=== PATIENT | female | born 1980 | race Caucasian/White ===

== ENCOUNTER 2017-12-05 23:01 | Emergency (ER) | payer BC ==
[2017-12-05] MEDS ORDERED: BABY ASPIRIN 81 MG CHEW PO ONE (23:46)
--- NOTE | 2017-12-05 23:46 | ERPHSYRPT ---
- History of Present Illness Time Seen by Provider: 12/05/17 23:29 Historian: patient Exam Limitations: no limitations Patient Subjective Stated Complaint: Pt arrives to ER with c/o nausea that began 1600, progressed to SOB and while driving home developed left sided chest pain that radiates into left arm and across to right side of chest. States has been retaining fluid for past month and was placed on Lasix for past month. Swelling is mainly in fingers and legs. pt describes as "I feel like I'm drowing " and is unable to tolerate laying flat. Pt does not appear to be in any distress at this time while laughing and joking with staff. pt denies actual diagnosis of CHF. Also c/o lightheadedness and coughing up blood. Triage Nursing Assessment: see above Physician History: Patient is a 37-year-old female with her daughter with multiple complaints. 2 days ago she woke up with left arm pain. She thought it was hurting because she slept wrong. She was little bit nauseated yesterday. Today she was not feeling well at work. This afternoon she was coughing. She coughed up green blood tinged sputum. She developed left-sided chest pain that was radiating to her left arm. It hurts for her to breathe. She has shortness of breath. She is unable to lie flat on her back causes she states it feels like she is "drowning". She has to sit up to breathe well. For the past month she states she has been retaining fluid and was placed on Lasix. Her past medical history is significant for depression, seizure disorder for which she had stopped taking Keppra one month ago, and lower extremity edema. Timing/Duration: today, gradual onset, worse Activities at Onset: none Quality: aching, fullness Location: substernal Chest Pain Radiation: arm Severity of Pain-Max: moderate Severity of Pain-Current: moderate Modifying Factors: Improves With: breathing, lying down (worse), sitting up ( improved), change in position Associated Symptoms: cough, hurts to breathe Prior Chest Pain/Cardiac Workup: no prior chest pain Nitro Today/Relief: no nitro taken today Aspirin Treatment Today: 81 mg x 4, provided by ED Allergies/Adverse Reactions: Penicillins Allergy (Verified 12/05/17 23:19) morphine Adverse Reaction (Severe, Verified 12/05/17 23:19) Vomiting naproxen Adverse Reaction (Verified 12/05/17 23:19) Home Medications: Levetiracetam [Keppra] 1,000 mg PO BID 03/24/16 [History] Bupropion HCl 150 mg Sr [Wellbutrin SR 150 MG] 150 mg PO DAILY 12/05/17 [ History] Furosemide [Furosemide] 20 mg PO DAILY 12/05/17 [History] Potassium Chloride 10 Meq Tab* [Klor Con 10 MEQ] 10 meq PO DAILY 12/05/17 [ History] Hx Tetanus, Diphtheria Vaccination/Date Given: No Hx Influenza Vaccination/Date Given: No Hx Pneumococcal Vaccination/Date Given: No Immunizations Up to Date: Yes - Review of Systems Constitutional: No Fever, No Chills Eyes: No Symptoms Ears, Nose, & Throat: No Symptoms Respiratory: Cough, Dyspnea Cardiac: Chest Pain, Edema Abdominal/Gastrointestinal: No Abdominal Pain, No Nausea, No Vomiting, No Diarrhea Genitourinary Symptoms: No Dysuria Musculoskeletal: No Back Pain, No Neck Pain Skin: No Rash Neurological: No Dizziness, No Focal Weakness, No Sensory Changes Psychological: No Symptoms Endocrine: No Symptoms Hematologic/Lymphatic: No Symptoms Immunological/Allergic: No Symptoms All Other Systems: Reviewed and Negative - Past Medical History Pertinent Past Medical History: Yes Neurological History: Seizures ENT History: No Pertinent History Cardiac History: No Pertinent History Respiratory History: Asthma, Other Endocrine Medical History: No Pertinent History Musculoskeletal History: No Pertinent History GI Medical History: No Pertinent History History: No Pertinent History Psycho-Social History: Depression Female Reproductive Disorders: Cervical Cancer Other Medical History: cervical ca - Past Surgical History Past Surgical History: Yes Neuro Surgical History: No Pertinent History Cardiac: No Pertinent History Respiratory: No Pertinent History Gastrointestinal: No Pertinent History Genitourinary: No Pertinent History Musculoskeletal: No Pertinent History Female Surgical History: Section, Hysterectomy - Social History Smoking Status: Current every day smoker How long have you smoked: 9 Exposure to second hand smoke: Yes Drug Use: none Patient Lives Alone: No - Female History Hx Now: No - Nursing Vital Signs Nursing Vital Signs: Initial Vital Signs Temperature 97.6 F 12/05/17 23:03 Pulse Rate 95 H 12/05/17 23:03 Respiratory Rate 22 12/05/17 23:03 Blood Pressure 127/82 12/05/17 23:03 O2 Sat by Pulse Oximetry 100 12/05/17 23:03 Pain Scale Pain Intensity 8 - Physical Exam General Appearance: anxiety Eye Exam: PERRL/EOMI, eyes nml inspection Ears, Nose, Throat Exam: normal ENT inspection, moist mucous membranes Neck Exam: normal inspection, non-tender, supple, full range of motion Respiratory Exam: chest tenderness (left side; reproduces pain), No rhonchi Cardiovascular Exam: regular rate/rhythm, normal heart sounds Gastrointestinal/Abdomen Exam: soft, No tenderness, No mass Pelvic Exam: not done Rectal Exam: not done Back Exam: normal inspection, No CVA tenderness, No vertebral tenderness Extremity Exam: pedal edema (very mild) Neurologic Exam: alert, oriented x 3, cooperative, normal mood/affect, sensation nml, No motor deficits Skin Exam: normal color, warm, dry SpO2 Interpretation: normal SpO2: 100 Oxygen Delivery: Room Air - Course EKG Interpreted by Me: RATE, Sinus Rhythm, NORMAL AXIS, NORMAL INTERVALS, NORMAL QRS, NORMAL ST-T, Other (no change compared to EKG 05/07/15.) - Radiology Exams Chest X-ray Interpretation: Interpreted by me, Negative (no change compared to CXR .) Ordered Tests: Active Orders 24 hr Category Date Time Status [employer] STAT Care 12/05/17 23:47 Active EKG-ER Only STAT Care 12/05/17 23:46 Active IV Insertion STAT Care 12/05/17 23:46 Active Oxygen-ED Only NASAL CANNULA 2 lpm Care 12/05/17 23:46 Active Pulse Oximetry (ED) STAT Care 12/05/17 23:46 Active CHEST 2 VIEWS (PA AND LAT) Stat Exams 12/05/17 23:46 Taken CBC W DIFF Stat Lab 12/05/17 23:30 Completed CMP Stat Lab 12/05/17 23:30 Completed NT PRO BNP Stat Lab 12/05/17 23:30 Completed TROPONIN Q3H Lab 12/05/17 23:30 Completed TROPONIN Q3H Lab 12/06/17 02:46 Ordered TROPONIN Q3H Lab 12/06/17 05:46 Ordered TROPONIN Q3H Lab 12/06/17 08:46 Ordered TROPONIN Q3H Lab 12/06/17 11:46 Ordered Medication Summary Generic Name Dose Route Start Last Admin Trade Name Freq PRN Reason Stop Dose Admin Ceftriaxone Sodium 1,000 mg 12/06/17 01:33 Rocephin 1000 Mg Inj IM 12/06/17 01:34 STAT ONE Discontinued Medications Generic Name Dose Route Start Last Admin Trade Name Garrison PRN Reason Stop Dose Admin Aspirin 324 mg 12/05/17 23:46 12/06/17 00:00 Baby Aspirin 81 Mg Chew PO 12/05/17 23:47 324 mg STAT ONE Administration Lab/Rad Data: Laboratory Result Diagrams 12/05/17 23:30 12/05/17 23:30 Laboratory Results 12/05/17 12/05/17 12/05/17 Range/Units 23:30 23:30 23:30 WBC 12.7 H (4.0-10.5) K/mm3 RBC 4.65 (4.1-5.4) M/mm3 Hgb 15.2 (12.0-16.0) gm/dl Hct 44.1 (35-47) % MCV 94.8 (78-100) fl MCH 32.7 H (26-32) pg MCHC 34.5 (32-36) g/dl RDW 13.2 (11.5-14.0) % Plt Count 347 (150-450) K/mm3 MPV 10.4 H (6-9.5) fl Gran % 60.8 (36.0-66.0) % Eos # (Auto) 0.21 (0-0.5) Absolute Lymphs (auto) 4.04 (1.0-4.6) Absolute Monos (auto) 0.70 (0.0-1.3) Lymphocytes % 31.8 (24.0-44.0) % Monocytes % 5.5 (0.0-12.0) % Eosinophils % 1.7 (0.00-5.0) % Basophils % 0.2 (0.0-0.4) % Absolute Granulocytes 7.72 H (1.4-6.9) Basophils # 0.02 (0-0.4) D-Dimer (215-500) ng/mL Sodium 137 (137-145) mmol/L Potassium 4.4 (3.5-5.1) mmol/L Chloride 104 (98-107) mmol/L Carbon Dioxide 25 (22-30) mmol/L Anion Gap 12.8 (5-15) MEQ/L BUN 19 H (7-17) mg/dL Creatinine 0.83 (0.52-1.04) mg/dL Estimated GFR > 60.0 ML/MIN Glucose 88 (74-106) mg/dL Calcium 9.5 (8.4-10.2) mg/dL Total Bilirubin 0.20 (0.2-1.3) mg/dL AST 13 L (14-36) U/L ALT 17 (0-35) U/L Alkaline Phosphatase 71 (38-126) U/L Troponin I < 0.012 (0.000-0.034) ng/mL NT-Pro-B Natriuret Pep 48.2 (0-450) pg/mL Serum Total Protein 7.1 (6.3-8.2) g/dL Albumin 4.1 (3.5-5.0) g/dL 12/05/17 Range/Units 00:00 WBC (4.0-10.5) K/mm3 RBC (4.1-5.4) M/mm3 Hgb (12.0-16.0) gm/dl Hct (35-47) % MCV (78-100) fl MCH (26-32) pg MCHC (32-36) g/dl RDW (11.5-14.0) % Plt Count (150-450) K/mm3 MPV (6-9.5) fl Gran % (36.0-66.0) % Eos # (Auto) (0-0.5) Absolute Lymphs (auto) (1.0-4.6) Absolute Monos (auto) (0.0-1.3) Lymphocytes % (24.0-44.0) % Monocytes % (0.0-12.0) % Eosinophils % (0.00-5.0) % Basophils % (0.0-0.4) % Absolute Granulocytes (1.4-6.9) Basophils # (0-0.4) D-Dimer 243 (215-500) ng/mL Sodium (137-145) mmol/L Potassium (3.5-5.1) mmol/L Chloride (98-107) mmol/L Carbon Dioxide (22-30) mmol/L Anion Gap (5-15) MEQ/L BUN (7-17) mg/dL Creatinine (0.52-1.04) mg/dL Estimated GFR ML/MIN Glucose (74-106) mg/dL Calcium (8.4-10.2) mg/dL Total Bilirubin (0.2-1.3) mg/dL AST (14-36) U/L ALT (0-35) U/L Alkaline Phosphatase (38-126) U/L Troponin I (0.000-0.034) ng/mL NT-Pro-B Natriuret Pep (0-450) pg/mL Serum Total Protein (6.3-8.2) g/dL Albumin (3.5-5.0) g/dL - Progress Progress: improved Air Movement: good Progress Note: 12/06/17 01:10 Pt is breathing well while supine, with O2 sat of 98% on room air. - Departure Time of Disposition: 01:35 Departure Disposition: Home Clinical Impression: Cough Condition: Stable Critical Care Time: No Referrals: MARGARITA GORDON [Primary Care Provider] - Additional Instructions: You were treated tonight in the ER or cough and some pleuritic chest pain. You were given aspirin 324 mg orally and Rocephin 1 g by IV. Take azithromycin 500 mg in the morning followed by 250 mg daily over the next 4 more days. Follow- up with your primary care doctor as needed. Prescriptions: Azithromycin 250 mg [Zithromax 250 MG TABLET] 250 mg PO ZPACK #6 tablet
[2017-12-06 00:02] LABS: BASOPHIL % 0.2 % (0.0-0.4); Basophil (Absolute #) 0.02 (0-0.4); Eosinophil % 1.7 % (0.00-5.0); Eosinophil (Absolute #) 0.21 (0-0.5); Granulocyte Absolute (ANC) 7.72 (1.4-6.9); Granulocytes % 60.8 % (36.0-66.0); Hematocrit 44.1 % (35-47); Hemoglobin 15.2 gm/dl (12.0-16.0); Lymphocyte (Absolute #) 4.04 (1.0-4.6); Lymphocytes % 31.8 % (24.0-44.0); Mean Cell Volume 94.8 fl (78-100); Mean Corpuscular Hemoglobin 32.7 pg (26-32); Mean Corpuscular Hgb Concent. 34.5 g/dl (32-36); Mean Platelet Volume 10.4 fl (6-9.5); Monocytes % 5.5 % (0.0-12.0); Platelet Count 347 K/mm3 (150-450); Red Blood Count 4.65 M/mm3 (4.1-5.4); Red Cell Distribution Width 13.2 % (11.5-14.0); White Blood Count 12.7 K/mm3 (4.0-10.5)
[2017-12-06 00:18] LABS: ALBUMIN 4.1 g/dL (3.5-5.0); ALKALINE PHOSPHATASE 71 U/L (38-126); ANION GAP 12.8 MEQ/L (5-15); BLOOD UREA NITROGEN 19 mg/dL (7-17); CHLORIDE 104 mmol/L (98-107); Calcium 9.5 mg/dL (8.4-10.2); Carbon Dioxide 25 mmol/L (22-30); Creatinine 1 0.83 mg/dL (0.52-1.04); Glucose 88 mg/dL (74-106); Potassium 4.4 mmol/L (3.5-5.1); SGOT/AST 13 U/L (14-36); SGPT/ALT 17 U/L (0-35); SODIUM 137 mmol/L (137-145); Total Protein 7.1 g/dL (6.3-8.2)
[2017-12-06 00:26] LABS: NT PRO BNP 48.2 pg/mL (0-450)
[2017-12-06] MEDS ORDERED: Rocephin 1000 MG INJ IM ONE (01:33)
[2017-12-06] MEDS ORDERED: ROCEPHIN 1 Gm-D5w 50 ml Bag** 1 G/50 ML IVPB IV STA (01:38)
[2017-12-06] MEDS ORDERED: ROCEPHIN 1 Gm-D5w 50 ml Bag** 1 G/50 ML IVPB IV ONE (01:40)
[2017-12-06 01:47] VITALS: BP 115/82; PULSE 88; O2SAT 99
--- NOTE | 2017-12-06 08:44 | XRAY ---
Indication: Chest pain short of breath. Comparison: August 29, 2017. AP/lateral chest less inflated and remains clear. Heart and mediastinal structures within normal limits. Bony thorax intact. Impression: Stable nonacute chest. Comment: Preliminary interpretation was made by [facility]. No discrepancy.
== END 2017-12-06 02:10 | disposition home or self-care (01) ==
LOC: ED 23:01
DX: R05 Cough (principal); R07.89 Other chest pain; R06.02 Shortness of breath; Z79.899 Other long term (current) drug therapy
CPT/HCPCS: 36000; 36415; 71046; 80053; 83880; 84484; 85025; 85379; 93005; 93041; 99284; J0696; A9270-GY

== ENCOUNTER 2018-03-24 15:04 | Observation (INO) | payer BC, OTHER ==
[2018-03-24] MEDS ORDERED: Zofran 4 MG/2 ML VIAL IV PRN (15:25)
[2018-03-24] MEDS ORDERED: Sodium Chloride 0.9% 500 ML 500 ML IV SCH (15:30)
[2018-03-24 16:31] LABS: Hematocrit 42.1 % (35-47); Hemoglobin 14.7 gm/dl (12.0-16.0); Mean Cell Volume 93.8 fl (78-100); Mean Corpuscular Hemoglobin 32.7 pg (26-32); Mean Corpuscular Hgb Concent. 34.9 g/dl (32-36); Mean Platelet Volume 10.8 fl (6-9.5); Red Blood Count 4.49 M/mm3 (4.1-5.4); Red Cell Distribution Width 12.7 % (11.5-14.0); White Blood Count 9.4 K/mm3 (4.0-10.5)
[2018-03-24] MEDS ORDERED: PROVENTIL 2.5 MG/3 ML NEB IH ONE (16:47)
[2018-03-24] MEDS ORDERED: PROVENTIL 2.5 MG/3 ML NEB IH PRN (16:49)
[2018-03-24 16:52] LABS: ALBUMIN 4.2 g/dL (3.5-5.0); ALKALINE PHOSPHATASE 65 U/L (38-126); ANION GAP 13.9 MEQ/L (5-15); BLOOD UREA NITROGEN 17 mg/dL (7-17); CHLORIDE 108 mmol/L (98-107); Calcium 8.7 mg/dL (8.4-10.2); Carbon Dioxide 22 mmol/L (22-30); Creatinine 1 0.66 mg/dL (0.52-1.04); Glucose 91 mg/dL (74-106); Potassium 3.8 mmol/L (3.5-5.1); SGOT/AST 14 U/L (14-36); SGPT/ALT 19 U/L (0-35); SODIUM 140 mmol/L (137-145); Total Protein 7.3 g/dL (6.3-8.2)
[2018-03-24 17:05] LABS: Platelet Count 267 K/mm3 (150-450)
[2018-03-24] MEDS: ROCEPHIN 1 Gm-D5w 50 ml Bag** 1 G/50 ML IVPB IV SCH (17:14)
[2018-03-24] MEDS: Sodium Chloride 0.9% 1000 ML 1,000 ML IV SCH (17:36)
[2018-03-24] MEDS: TYLENOL 325 MG PO PRN (17:55)
[2018-03-24] MEDS: VIBRAMYCIN 100 MG*** 100 MG in Dextrose 5%/Water IV Soln. 100ML PLUS BAG 100 ML IV SCH (17:56)
[2018-03-24 18:34] LABS: Appearance CLEAR (CLEAR); Bilirubin NEGATIVE (NEGATIVE); Blood NEGATIVE Ery/ul (0-5); Glucose NEGATIVE (NEGATIVE); Ketones NEGATIVE (NEGATIVE); Leukocyte Esterase NEGATIVE (NEGATIVE); Nitrite NEGATIVE (NEGATIVE); Protein,Urine Dip NEGATIVE (Negative); Urobilinogen NORMAL mg/dL (0-1)
[2018-03-24] MEDS: PROVENTIL 2.5 MG/3 ML NEB IH SCH (19:23)
--- NOTE | 2018-03-24 22:10 | XRAY ---
Indication: Pneumonia, fever, and bodyaches. Comparison: December 05, 2017. PA/lateral chest again demonstrates normal heart, lungs, and bony thorax.
[2018-03-25] MEDS: Sodium Chloride 0.9% 1000 ML 1,000 ML IV SCH ×3 (03:25→19:42)
[2018-03-25] MEDS: TYLENOL 325 MG PO PRN ×3 (03:37→21:01)
[2018-03-25] MEDS: VIBRAMYCIN 100 MG*** 100 MG in Dextrose 5%/Water IV Soln. 100ML PLUS BAG 100 ML IV SCH ×2 (06:17→18:07)
[2018-03-25] MEDS: PROVENTIL 2.5 MG/3 ML NEB IH SCH ×4 (06:52→21:13)
[2018-03-25] MEDS: ROCEPHIN 1 Gm-D5w 50 ml Bag** 1 G/50 ML IVPB IV SCH (09:41)
--- NOTE | 2018-03-25 13:04 | PCM.NOTE ---
Date and Time: 03/25/18 1300 Subjective Assessment: She is having nausea, no vomiting. States "I just picked at my sandwich" but there is approx 1/4 of sandwich remaining on her plate. She has cough. Still has some body aches. C/o L leg pain. - Review of Systems Constitutional: No Fever Respiratory: Cough Abdominal/Gastrointestinal: Nausea Musculoskeletal: Other (leg pain, body aches) Objective Exam General Appearance: no apparent distress, alert Neurologic Exam: oriented x 3, cooperative Skin Exam: normal color, warm, dry, No rash Respiratory Exam: normal breath sounds, lungs clear, No crackles/rales, No rhonchi, No wheezing Cardiovascular Exam: regular rate/rhythm, normal heart sounds, No murmur Gastrointestinal/Abdomen Exam: soft, normal bowel sounds, No tenderness, No distention, No mass, No guarding, No rebound Extremity Exam: normal inspection, No pedal edema, No swelling OBJECTIVE DATA Vital Signs: Vital Signs - 24 hr Temp Pulse Resp BP Pulse Ox 03/25/18 12:00 16 03/25/18 11:09 98.2 F 94 H 16 113/66 98 03/25/18 11:01 78 18 94 L 03/25/18 08:00 16 03/25/18 07:02 98.2 F 76 16 102/61 98 03/25/18 06:57 87 18 98 03/25/18 03:59 98.1 F 95 H 20 105/66 96 03/25/18 00:00 98.0 F 97 H 19 93/51 98 03/24/18 20:00 98.0 F 105 H 18 113/56 97 03/24/18 19:26 94 H 18 94 L 03/24/18 16:56 96 H 18 97 03/24/18 16:22 97.9 F 100 H 20 122/69 98 03/24/18 15:38 97.9 F 100 H 98 H 122/69 98 03/24/18 15:37 97.9 F 100 H 98 H 122/69 98 Pain Assessment - Last Documented Pain Intensity 6 Pain Scale Used 0-10 Pain Scale Intake and Output: Intake & Output 03/23/18 03/24/18 03/25/18 03/26/18 11:59 11:59 11:59 11:59 Intake Total 2359 Output Total 100 Balance 2259 Weight 72.7 kg Lab Results: Lab Results-Last 24 Hours 03/24/18 03/24/18 03/24/18 Range/Units 15:43 16:29 16:29 WBC 9.4 (4.0-10.5) K/mm3 RBC 4.49 (4.1-5.4) M/mm3 Hgb 14.7 (12.0-16.0) gm/dl Hct 42.1 (35-47) % MCV 93.8 (78-100) fl MCH 32.7 H (26-32) pg MCHC 34.9 (32-36) g/dl RDW 12.7 (11.5-14.0) % Plt Count 267 (150-450) K/mm3 MPV 10.8 H (6-9.5) fl D-Dimer (215-500) ng/mL Sodium (137-145) mmol/L Potassium (3.5-5.1) mmol/L Chloride (98-107) mmol/L Carbon Dioxide (22-30) mmol/L Anion Gap (5-15) MEQ/L BUN (7-17) mg/dL Creatinine (0.52-1.04) mg/dL Estimated GFR ML/MIN Glucose (74-106) mg/dL Lactic Acid 0.8 (0.4-2.0) Calcium (8.4-10.2) mg/dL Total Bilirubin (0.2-1.3) mg/dL AST (14-36) U/L ALT (0-35) U/L Alkaline Phosphatase (38-126) U/L Troponin I < 0.012 (0.000-0.034) ng/mL Serum Total Protein (6.3-8.2) g/dL Albumin (3.5-5.0) g/dL Ur Collection Type Urine Color (YELLOW) Urine Appearance (CLEAR) Urine pH (5-6) Ur Specific [place] (1.005-1.025) Urine Protein (Negative) Urine Ketones (NEGATIVE) Urine Blood (0-5) Michael/ul Urine Nitrite (NEGATIVE) Urine Bilirubin (NEGATIVE) Urine Urobilinogen (0-1) mg/dL Ur Leukocyte Esterase (NEGATIVE) Urine Glucose (NEGATIVE) mg/dL 03/24/18 03/24/18 03/24/18 Range/Units 16:29 16:29 18:31 WBC (4.0-10.5) K/mm3 RBC (4.1-5.4) M/mm3 Hgb (12.0-16.0) gm/dl Hct (35-47) % MCV (78-100) fl MCH (26-32) pg MCHC (32-36) g/dl RDW (11.5-14.0) % Plt Count (150-450) K/mm3 MPV (6-9.5) fl D-Dimer 255 (215-500) ng/mL Sodium 140 (137-145) mmol/L Potassium 3.8 (3.5-5.1) mmol/L Chloride 108 H (98-107) mmol/L Carbon Dioxide 22 (22-30) mmol/L Anion Gap 13.9 (5-15) MEQ/L BUN 17 (7-17) mg/dL Creatinine 0.66 (0.52-1.04) mg/dL Estimated GFR > 60.0 ML/MIN Glucose 91 (74-106) mg/dL Lactic Acid (0.4-2.0) Calcium 8.7 (8.4-10.2) mg/dL Total Bilirubin 0.30 (0.2-1.3) mg/dL AST 14 (14-36) U/L ALT 19 (0-35) U/L Alkaline Phosphatase 65 (38-126) U/L Troponin I (0.000-0.034) ng/mL Serum Total Protein 7.3 (6.3-8.2) g/dL Albumin 4.2 (3.5-5.0) g/dL Ur Collection Type VOID Urine Color YELLOW (YELLOW) Urine Appearance CLEAR (CLEAR) Urine pH 6.0 (5-6) Ur Specific [place] 1.020 (1.005-1.025) Urine Protein NEGATIVE (Negative) Urine Ketones NEGATIVE (NEGATIVE) Urine Blood NEGATIVE (0-5) Michael/ul Urine Nitrite NEGATIVE (NEGATIVE) Urine Bilirubin NEGATIVE (NEGATIVE) Urine Urobilinogen NORMAL (0-1) mg/dL Ur Leukocyte Esterase NEGATIVE (NEGATIVE) Urine Glucose NEGATIVE (NEGATIVE) mg/dL Radiology Exams: Radiology Procedures Category Date Time Status CHEST 2 VIEWS (PA AND LAT) Routine Exams 03/24/18 16:15 Completed Assessment/Plan (1) Pneumonia Current Visit: Yes Status: Acute Qualifiers: Pneumonia type: due to unspecified organism Laterality: unspecified laterality Lung location: unspecified part of lung Qualified Code(s): J18.9 - Pneumonia, unspecified organism Assessment & Plan: lung sounds are clear this morning. On IV rocephin day #2. Code(s): J18.9 - PNEUMONIA, UNSPECIFIED ORGANISM (2) Fever Current Visit: Yes Status: Acute Qualifiers: Fever type: unspecified Qualified Code(s): R50.9 - Fever, unspecified Assessment & Plan: would like to see her 24 h without fever before d/c Code(s): R50.9 - FEVER, UNSPECIFIED (3) Body aches Current Visit: Yes Status: Acute Code(s): R52 - PAIN, UNSPECIFIED (4) Tick bite Current Visit: Yes Status: Acute Qualifiers: Encounter type: initial encounter Qualified Code(s): W57.XXXA - Bitten or stung by nonvenomous insect and other nonvenomous arthropods, initial encounter Assessment & Plan: On IV doxycycline day #2. When she is discharged, likely tomorrow, will be on po liquid doxycycline and a liquid cephalosporin. Code(s): W57.XXXA - BIT/STUNG BY NONVENOM INSECT & OTH NONVENOM ARTHROPODS, INIT
[2018-03-26] MEDS: Sodium Chloride 0.9% 1000 ML 1,000 ML IV SCH (04:50)
[2018-03-26] MEDS: VIBRAMYCIN 100 MG*** 100 MG in Dextrose 5%/Water IV Soln. 100ML PLUS BAG 100 ML IV SCH (05:28)
[2018-03-26 07:37] VITALS: BP 102/63
[2018-03-26] MEDS: PROVENTIL 2.5 MG/3 ML NEB IH SCH (08:33)
[2018-03-26 08:43] VITALS: PULSE 88; O2SAT 97
[2018-03-26] MEDS: TYLENOL 325 MG PO PRN (08:49)
[2018-03-26] MEDS: ROCEPHIN 1 Gm-D5w 50 ml Bag** 1 G/50 ML IVPB IV SCH (08:49)
--- NOTE | 2018-03-26 10:52 | PCM.DS ---
Discharge Summary Date of Admission: 03/24/18 15:22 Admitting Physician: JUSTINE JARRELL Primary Care Provider: MARGARITA GORDON Allergies Allergies Penicillins Allergy (Verified 12/05/17 23:19) morphine Adverse Reaction (Severe, Verified 12/05/17 23:19) Vomiting naproxen Adverse Reaction (Verified 12/05/17 23:19) Hospital Summary - Hospital Course Hospital Course: Pt is 37 yo female pt of Heena Stevenson who saw Dr. Riggins in the office and was directly admitted by her. She had a tick bite recently and was feeling achy; she had been started on po doxycycline but could only tolerate 4 doses as she does not take pills well. She had a fever and also complained of cough and not feeling well for some time. Dr. Riggins auscultated rhonchi and treated pt for pneumonia with IV rocephin. Yesterday she was feeling somewhat better but still having nausea. Today she has been afebrile for over 24 hours. She is tolerating po, no more nausea, and is overall feeling much better. She will be discharged to home with nebulizer treatments (albuterol), as weel as liquid po doxycycline and liquid po omnicef. - Vitals & Intake/Output Vital Signs: Vital Signs Temperature 98 F 03/26/18 07:36 Pulse Rate 88 03/26/18 08:34 Respiratory Rate 16 03/26/18 08:34 Blood Pressure 102/63 03/26/18 07:36 O2 Sat by Pulse Oximetry 97 03/26/18 08:34 Intake & Output: Intake & Output 03/23/18 03/24/18 03/25/18 03/26/18 11:59 11:59 11:59 11:59 Intake Total 3769 2749 Output Total 100 500 Balance 2259 2249 Weight 72.7 kg - Lab Result Diagrams: 03/24/18 16:29 03/24/18 16:29 Micro Results-Entire Visit: Microbiology 03/24/18 18:31 Urine Culture - Final Clean Catch Midstream NO GROWTH 03/24/18 16:29 Blood Culture - Preliminary Blood NO GROWTH TO DATE 03/24/18 16:29 Blood Culture - Preliminary Blood NO GROWTH TO DATE - Radiology Exams Ordered Rad Exams-Entire Visit: Radiology Procedures Category Date Time Status CHEST 2 VIEWS (PA AND LAT) Routine Exams 03/24/18 16:15 Completed - Procedures and Test Procedures and Tests throughout Hospitalization: Therapy Orders & Screens 03/24/18 15:37 EKG ROUTINE Comment: Diagnosis: Pneumonia, fever, bodyaches, tick bite 03/24/18 15:40 Respiratory Therapy Consult ROUTINE Comment: Reason For Exam: Diagnosis: Pneumonia, fever, bodyaches, tick bite 03/24/18 16:50 Peak Expiratory Flow Rate ONCE Comment: Reason For Exam: Diagnosis: Pneumonia, fever, bodyaches, tick bite Respiratory Therapy Assessment DAILY Comment: Diagnosis: Pneumonia, fever, bodyaches, tick bite 03/24/18 17:33 RT Screen per Nursing Assess ONCE Comment: Protocol Order Physician Instructions: Greater than 3 points order RT Admission Screen Reason For Exam: Triggered on Admission Diagnosis: Pneumonia, fever, bodyaches, tick bite Diagnosis: Pneumonia, fever, bodyaches, tick bite Pneumonia: Yes Home O2: No Asthma: Yes CHF: No Home CPAP/BIPAP: No Home Nebs/MDI: Yes Total Points: 12 Smoking Cessation Education ONCE Comment: Diagnosis: Pneumonia, fever, bodyaches, tick bite Smoking Status: Current every day smoker How long have you smoked: "20 years" Have you smoked in the past 12 months: Yes Approximately how many cigarettes per day: 20 Do you dip or chew tobacco: No Discharge Exam General Appearance: no apparent distress, alert Neurologic Exam: oriented x 3, cooperative Skin Exam: normal color, warm, dry, No rash Respiratory Exam: normal breath sounds, lungs clear, No crackles/rales, No rhonchi, No wheezing Cardiovascular Exam: regular rate/rhythm, normal heart sounds, No murmur Gastrointestinal/Abdomen Exam: soft, normal bowel sounds, No tenderness, No distention, No mass, No guarding, No rebound Extremity Exam: normal inspection, No pedal edema, No swelling Final Diagnosis/Problem List - Final Discharge Diagnosis/Problem (1) Pneumonia Current Visit: Yes Status: Acute Onset Date: ~03/24/18 Assessment & Plan: Much improved. Home on po liquid omnicef. (2) Fever Current Visit: Yes Status: Acute Onset Date: ~03/24/18 Assessment & Plan: Resolved. (3) Body aches Current Visit: Yes Status: Resolved Onset Date: ~03/24/18 (4) Tick bite Current Visit: Yes Status: Acute Onset Date: ~03/24/18 Assessment & Plan: Home on po doxycyline (liquid) for 14 days total (11 more days). - Discharge Disposition: Home, Self-Care Condition: Good Prescriptions: New Doxycycline Monohydrate [Doxycycline] 4 tsp PO BID #440 ml Cefdinir 125 mg/5 ml [Omnicef 125 MG/5 ML SUSP] 12 ml PO BID #100 ml Albuterol 2.5 mg/3 ml Neb [Proventil 2.5 mg/3 ml Neb] 2.5 mg IH Q4H PRN PRN #30 neb PRN Reason: Shortness Of Breath/Wheezing Instructions: Pneumonia, Adult (DC) Follow up with: MARGARITA GORDON [Primary Care Provider] - Call for Appointment Forms: Discharge Instructions, Patient Portal Information
[2018-03-27 18:27] LABS: LYME TOTAL WB TOTAL 0.19 index (0.00-0.90)
[2018-03-29 11:17] LABS: Rocky MT.Spotted Fever IgM <1:64 (<1:64)
== END 2018-03-26 11:00 | disposition home or self-care (01) ==
LOC: MED SURG 15:22
PROVIDERS: ADMIT Family Medicine; ATTEND Family Medicine
DX: J18.9 Pneumonia, unspecified organism (principal); R50.9 Fever, unspecified; R52 Pain, unspecified; W57.XXXA Bitten or stung by nonvenomous insect and other nonvenomous arthropods, initial encounter; F41.9 Anxiety disorder, unspecified; Z72.0 Tobacco use
CPT/HCPCS: 36415; 71046; 80053; 81002; 83605; 84484; 85027; 85379; 86617; 86618; 86757; 87040; 87086; 87798; 93005; 94150; 94640; 94760; G0378; J7609; J0696; A9270-GY

== ENCOUNTER 2019-10-02 20:47 | Emergency (ER) | payer OTHER ==
--- NOTE | 2019-10-02 21:02 | ERPHSYRPT ---
- History of Present Illness Time Seen by Provider: 10/02/19 20:55 Source: patient Exam Limitations: no limitations Physician History: This is a right-handed 38-year-old female who was working at her job in a long term when she leaned against a chair in the patient's room. The chair was broken and patient fell injuring her left wrist. This occurred approximately 4 days ago. In the last 4 days the patient has been using ice, ibuprofen and Tylenol for the pain and swelling. Patient states it has not improved. Patient was sent here for evaluation. Patient states this is a workman's compensation visit. Occurred: days ago Method of Injury: fell Quality: constant, aching Severity of Pain-Max: mild Severity of Pain-Current: mild Extremities Pain Location: wrist: left Modifying Factors: Improves With: movement (Worsens) Allergies/Adverse Reactions: Penicillins Allergy (Verified 10/02/19 21:07) morphine Adverse Reaction (Severe, Verified 10/02/19 21:07) Vomiting naproxen Adverse Reaction (Verified 10/02/19 21:07) Home Medications: Furosemide [Lasix] 20 mg PO DAILY 10/02/19 [History] Hx Tetanus, Diphtheria Vaccination/Date Given: No Hx Influenza Vaccination/Date Given: No Hx Pneumococcal Vaccination/Date Given: No Travel Risk - International Travel Have you traveled outside of the country in past 3 weeks: No Have you or anyone close to you been diagnosed with or: No Do your reside in a community with a known COVID-19 case?: Yes If Yes where:: [place] - Coronavirus Screening Has patient experienced Coronavirus symptoms: No - Review of Systems Constitutional: No Symptoms Eyes: No Symptoms Ears, Nose, & Throat: No Symptoms Respiratory: No Symptoms Cardiac: No Symptoms Abdominal/Gastrointestinal: No Symptoms Genitourinary Symptoms: No Symptoms Musculoskeletal: Fall, Injury, Joint Pain (Left wrist) Skin: No Symptoms Neurological: No Symptoms Psychological: No Symptoms Endocrine: No Symptoms Hematologic/Lymphatic: No Symptoms Immunological/Allergic: No Symptoms All Other Systems: Reviewed and Negative - Past Medical History Pertinent Past Medical History: Yes Neurological History: Seizures ENT History: No Pertinent History Cardiac History: No Pertinent History Respiratory History: Asthma, Other Endocrine Medical History: No Pertinent History Musculoskeletal History: No Pertinent History GI Medical History: No Pertinent History History: No Pertinent History Psycho-Social History: Depression Female Reproductive Disorders: Cervical Cancer Other Medical History: cervical ca - Past Surgical History Past Surgical History: Yes Neuro Surgical History: No Pertinent History Cardiac: No Pertinent History Respiratory: No Pertinent History Gastrointestinal: No Pertinent History Genitourinary: No Pertinent History Musculoskeletal: No Pertinent History Female Surgical History: Section, Hysterectomy - Social History Smoking Status: Current every day smoker How long have you smoked: "20 years" Exposure to second hand smoke: Yes Drug Use: none Patient Lives Alone: No - Nursing Vital Signs Nursing Vital Signs: Initial Vital Signs Temperature 98.4 F 10/02/19 20:53 Pulse Rate 103 H 10/02/19 20:53 Respiratory Rate 18 10/02/19 20:53 Blood Pressure 118/83 10/02/19 20:53 O2 Sat by Pulse Oximetry 100 10/02/19 20:53 Pain Scale Pain Intensity 9 - Physical Exam General Appearance: no apparent distress, alert, anxiety Eyes, Ears, Nose, Throat Exam: normal ENT inspection, moist mucous membranes Neck Exam: normal inspection, non-tender, supple, full range of motion Cardiovascular/Respiratory Exam: chest non-tender Abdominal Exam: non-tender Back Exam: normal inspection, normal range of motion, No CVA tenderness, No vertebral tenderness Shoulder Exam: normal inspection, non-tender, no evidence of injury, normal ROM Elbow/Forearm Exam: normal inspection, non-tender, no evidence of injury, normal ROM Wrist Exam: normal ROM, ecchymosis, pain, soft tissue tenderness, swelling Hand Exam: normal inspection, non-tender, no evidence of injury, normal ROM Neuro/Tendon Exam: normal sensation, normal motor functions, normal tendon functions, responds to pain, no evidence tendon injury Mental Status Exam: alert, oriented x 3, cooperative Skin Exam: normal color, warm, dry SpO2 Interpretation: normal SpO2: 100 O2 Delivery: Room Air Ordered Tests: Active Orders 24 hr Category Date Time Status Splint STAT Care 10/02/19 21:23 Active WRIST (MIN 3 VIEWS) Stat Exams 10/02/19 21:03 Taken - Progress Progress: unchanged, re-examined Progress Note: 10/02/19 21:40 X-ray of left wrist reveals no evidence of acute fracture or dislocation. Counseled pt/family regarding: diagnosis, need for follow-up, rad results - Departure Departure Disposition: Home Clinical Impression: Left wrist sprain Condition: Stable Critical Care Time: No Referrals: EVAN,MARGARITA F [Primary Care Provider] - [facility] [id number] Instructions: Wrist Sprain Additional Instructions: Use Velcro splint for pain control. Add ibuprofen and Tylenol for pain. Follow -up with orthopedic clinic at [facility] for persistent symptoms of pain
[2019-10-02] MEDS ORDERED: PERCOCET TABLET 5/325MG PO STA (21:43)
[2019-10-02] MEDS ORDERED: PERCOCET TABLET 5/325MG ONE ×2 (21:48→21:49)
[2019-10-02 22:07] VITALS: BP 114/71; PULSE 86; O2SAT 99
--- NOTE | 2019-10-03 08:20 | XRAY ---
Indication: Pain following fall. Comparison: July 09, 2015. 3 views of the left wrist demonstrates mild widening scapholunate interval concerning for underlying ligamentous tear. No other bony, articular, or soft tissue abnormalities.
== END 2019-10-02 22:06 | disposition home or self-care (01) ==
LOC: ED 20:47
DX: S63.502A Unspecified sprain of left wrist, initial encounter (principal); W01.198A Fall on same level from slipping, tripping and stumbling with subsequent striking against other object, initial encounter; Y93.89 Activity, other specified; Y92.129 Unspecified place in nursing home as the place of occurrence of the external cause; Y99.0 Civilian activity done for income or pay; Z85.41 Personal history of malignant neoplasm of cervix uteri; Z72.89 Other problems related to lifestyle
CPT/HCPCS: 73110; 99283; L3908; A9270-GY

== ENCOUNTER 2020-11-08 01:42 | Emergency (ER) | payer BC ==
[2020-11-08] MEDS ORDERED: EMLA Cream 5 GM TP ONE ×2 (01:56→02:04)
[2020-11-08] MEDS ORDERED: SUBLIMAZE 100 MCG/2 ML IV ONE (01:57)
[2020-11-08] MEDS ORDERED: Sodium Chloride 0.9% 1000 ML 1,000 ML IV STA (01:58)
[2020-11-08 02:02] VITALS: O2SAT 100
[2020-11-08] MEDS ORDERED: NORCO 5/325 MG ONE ×2 (02:08→04:28)
[2020-11-08] MEDS ORDERED: NORCO 5/325 MG PO ONE ×2 (02:08→04:26)
[2020-11-08] MEDS ORDERED: ZOFRAN ODT 4 MG PO ONE (02:15)
[2020-11-08] MEDS ORDERED: ZOFRAN ODT 4 MG ONE (02:17)
[2020-11-08] MEDS ORDERED: XYLOCAINE 1%/Epi 1:100000 MDV 20 ML ONE (03:51)
[2020-11-08] MEDS ORDERED: XYLOCAINE 1%/Epi 1:100000 MDV 20 ML IJ ONE (04:00)
--- NOTE | 2020-11-08 04:20 | ERPHSYRPT ---
- History of Present Illness Time Seen by Provider: 11/08/20 02:20 Patient Subjective Stated Complaint: Patient states " I was walking and tripped over the dog and hit my nose on the corner of the coffee table." Triage Nursing Assessment: Patient arrived to ED and ambulated back to room without difficulty. Patient A/O times 4. Patient able to answer questions without difficulty. Pateint able to follow instructions without difficulty. Patient holding wash cloth to nose upon arrival. Patient noted with laceration to bridge of nose that goes in to the left side. Moderate amounts of active bleeding noted. Entire nose and under eyes with swelling. Patient denies losing LOC. Patient denies N/V. Patient denies dizziness. Laceration washed with saline and pressure applied and patient stated the pressure releived some of her pain. 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 Bilateral pupils brisk and reactive. Neuro-checks WNL. Patient able to move neck and ROM WNL. Patient denies any further injury or trauma. Patient tearful upon entering room. Patient denies any visual disturbances. Physician History: Dejuan is a 40-year-old female who was walking through her house carrying a large pizza in both hands when she tripped over the dog and in an attempt to save the pizza hit her face directly on the edge of a coffee table. She had no loss of consciousness she complains of no pain except in her face. She has a laceration across the nose and blood from both nostrils. Timing/Duration: abrupt onset, this evening Severity: severe ENT Location: nose Prearrival Treatment: no prearrival treatment Modifying Factors: Improves With: activity Associated Symptoms: facial pain/swelling, other (Bilateral bleeding from the n ose deformity of the nose and a 4 cm laceration going somewhat obliquely across the entire nose.) Allergies/Adverse Reactions: Penicillins Allergy (Verified 11/08/20 01:55) morphine Adverse Reaction (Severe, Verified 11/08/20 01:55) Vomiting naproxen Adverse Reaction (Verified 11/08/20 01:55) Home Medications: Furosemide [Lasix] 20 mg PO DAILY 10/02/19 [History] Levothyroxine Sodium 50 Mcg [Synthroid 50 Mcg] 50 mcg PO DAILY 11/08/20 [History] Phentermine HCl [Adipex-P] 37.5 mg PO DAILY 11/08/20 [History] Potassium Chloride 10 Meq Tab* [Klor Con 10 MEQ] 10 meq PO DAILY 11/08/20 [History] Hx Tetanus, Diphtheria Vaccination/Date Given: Yes Hx Influenza Vaccination/Date Given: No Hx Pneumococcal Vaccination/Date Given: No Immunizations Up to Date: Yes Travel Risk - International Travel Have you traveled outside of the country in past 3 weeks: No - Coronavirus Screening Are you exhibiting any of the following symptoms?: No Close contact with a COVID-19 positive Pt in past 14-21 Days: No - Vaccine Status Have you recieved a Covid-19 vaccination: No - Review of Systems Constitutional: No Fever, No Chills Eyes: No Symptoms Ears, Nose, & Throat: No Symptoms Respiratory: No Cough, No Dyspnea Cardiac: No Chest Pain, No Edema, No Syncope Abdominal/Gastrointestinal: No Abdominal Pain, No Nausea, No Vomiting, No Diarrhea Genitourinary Symptoms: No Dysuria Musculoskeletal: No Back Pain, No Neck Pain Skin: No Rash Neurological: No Dizziness, No Focal Weakness, No Sensory Changes Psychological: No Symptoms Endocrine: No Symptoms All Other Systems: Reviewed and Negative - Past Medical History Pertinent Past Medical History: Yes Neurological History: No Pertinent History ENT History: No Pertinent History Cardiac History: No Pertinent History Respiratory History: No Pertinent History Endocrine Medical History: Hypothyroidism, Other Musculoskeletal History: No Pertinent History GI Medical History: No Pertinent History History: No Pertinent History Psycho-Social History: Depression Female Reproductive Disorders: Cervical Cancer Other Medical History: HX Cervical Cancer (S/P Hysterectomy approx 2005), C- Section x2 (1999, 2001) - Past Surgical History Past Surgical History: Yes Neuro Surgical History: No Pertinent History Cardiac: No Pertinent History Respiratory: No Pertinent History Gastrointestinal: No Pertinent History Genitourinary: No Pertinent History Musculoskeletal: No Pertinent History Female Surgical History: Section, Hysterectomy - Social History Smoking Status: Current every day smoker How long have you smoked: 25 years Exposure to second hand smoke: Yes Drug Use: none Patient Lives Alone: No - Female History Hx Last Menstrual Period: Hysterectomy Hx Now: No - Nursing Vital Signs Nursing Vital Signs: Initial Vital Signs Temperature 97.7 F 11/08/20 02:01 Pulse Rate 125 H 11/08/20 02:01 Respiratory Rate 22 11/08/20 02:01 Blood Pressure 138/98 11/08/20 02:01 O2 Sat by Pulse Oximetry 100 11/08/20 02:01 Pain Scale Pain Intensity 2 - Physical Exam General Appearance: moderate distress, alert Eye Exam: bilateral eye: PERRL, EOMI Ear Exam: bilateral ear: auricle normal, canal normal, TM normal Nasal Exam: active bleeding (Bruising is noted from an oblique laceration going across the nose examination of the nose shows no obvious septal hematoma and she is able to move air on both sides) Throat Exam: pharynx normal, moist mucus membranes, No tonsillar exudate Neck Exam: supple Cardiovascular/Respiratory Exam: normal breath sounds, regular rate/rhythm Abdominal Exam: non-tender, soft Neurologic Exam: alert, oriented x 3, sensation nml, No motor deficits Skin Exam: normal color, warm, dry SpO2 Interpretation: normal SpO2: 100 O2 Delivery: Room Air Procedures - Laceration/Wound Repair Face Time of Procedure: 03:50 Wound Location: face (Lacerations across the nose) Wound Length (cm): 4 Wound's Depth, Shape: linear Wound Explored: no foreign body noted Irrigated: Yes Hibiclens Prep: Yes Anesthesia: 1% lidocaine w/ Epi Volume Anesthetic (ccs): 5 Wound Debrided: minimal Wound Repaired With: sutures Suture Size/Type: 6-0, ethilon Number of Sutures: 6 Layer Closure?: No - Course Nursing assessment & vital signs reviewed: Yes - CT Exams Maxillofacial Bones CT Interpretation: Tele-radiologist Report (This indicates a comminuted mildly depressed and displaced fracture of the nose including fracture of the anterior superior nasal septum. Note is made that there is some soft tissue swelling CT scan makes no mention of any occult septal hematoma.) Ordered Tests: Active Orders 24 hr Category Date Time Status FACIAL BONES WO CONTRAST [CT] Stat Exams 11/08/20 02:14 Taken Medication Summary Discontinued Medications Generic Name Dose Route Start Last Admin Trade Name Freq PRN Reason Stop Dose Admin Hydrocodone Bitart/Acetaminophen 1 tab 11/08/20 02:08 11/08/20 02:09 [place] 5/325 Mg PO 11/08/20 02:09 1 tab STAT ONE Administration Hydrocodone Bitart/Acetaminophen Confirm 11/08/20 02:08 [place] 5/325 Mg Administered 11/08/20 02:09 Dose 1 tab .ROUTE .STK-MED ONE Hydrocodone Bitart/Acetaminophen 2 tab 11/08/20 04:26 [place] 5/325 Mg PO 11/08/20 04:27 SENT HOME W/ PATIENT ONE Clindamycin HCl 300 mg 11/08/20 04:26 Cleocin 150 Mg Capsule PO 11/08/20 04:27 STAT ONE Fentanyl Citrate 75 mcg 11/08/20 01:57 11/08/20 02:09 Sublimaze 100 Mcg/2 Ml IV 11/08/20 01:58 Not Given STAT ONE Sodium Chloride 1,000 mls @ 999 mls/hr 11/08/20 01:58 11/08/20 02:10 Sodium Chloride 0.9% 1000 Ml IV 11/08/20 02:58 Not Given .Q1H1M STA Lidocaine/Epinephrine Confirm 11/08/20 03:51 Xylocaine 1%/Epi 1:[id number] Mdv 20 Ml Administered 11/08/20 03:52 Dose 1 ml .ROUTE .STK-MED ONE Lidocaine/Epinephrine 10 ml 11/08/20 04:00 11/08/20 04:02 Xylocaine 1%/Epi 1:[id number] Mdv 20 Ml IJ 11/08/20 04:01 10 ml STAT ONE Administration Lidocaine/Prilocaine 2.5 gm 11/08/20 01:56 11/08/20 02:06 Emla Cream 5 Gm TP 11/08/20 01:57 2.5 gm STAT ONE Administration Lidocaine/Prilocaine Confirm 11/08/20 02:04 Emla Cream 5 Gm Administered 11/08/20 02:05 Dose 5 gm TP .STK-MED ONE Ondansetron HCl 4 mg 11/08/20 02:15 11/08/20 02:18 Zofran Odt 4 Mg PO 11/08/20 02:16 4 mg STAT ONE Administration Ondansetron HCl Confirm 11/08/20 02:17 Zofran Odt 4 Mg Administered 11/08/20 02:18 Dose 4 mg .ROUTE .STK-MED ONE - Progress Progress: improved - Departure Departure Disposition: Home Clinical Impression: Facial laceration, Nasal bones, closed fracture Condition: Stable Critical Care Time: No Referrals: MARGARITA GORDON [Primary Care Provider] - Instructions: Laceration Repair With Stitches (DC) Additional Instructions: Patient is to sleep upright and apply cool ice packs as tolerated. She has been informed that she will need to follow-up with ENT and she should call her PCP for referral first thing Tuesday morning. Also be placed on antibiotics she was also informed that this will leave a scar. Prescriptions: clindamycin HCL [Cleocin HCl] 150 mg PO TID 7 Days #21 capsule Oxycodone HCl/Acetaminophen [Percocet 5-325 mg Tablet] 1 each PO Q6H 3 Days #12 tablet MDD 4
[2020-11-08 04:26] VITALS: BP 130/83; PULSE 88
[2020-11-08] MEDS ORDERED: CLEOCIN 150 MG CAPSULE PO ONE (04:26)
[2020-11-08] MEDS ORDERED: CLEOCIN 150 MG CAPSULE ONE (04:28)
--- NOTE | 2020-11-08 08:38 | XRAY ---
Indication: Nasal pain/laceration following fall. Multiple contiguous axial images obtained through the facial bones. Sagittal and coronal reformatted images obtained. Comparison: None Mildly depressed and comminuted bilateral nasal bone fractures with overlying soft tissue swelling. Also nondisplaced fracture involving nasal septum with convexity to the left. Orbits including roof, rainey, and floors are intact. There is moderate mucosal thickening of the left maxillary and both sphenoid sinuses with minimal fluid leveling. Remaining visualized noncontrasted soft tissues including base of the brain unremarkable. Impression: 1. Comminuted nasal bone and nasal septum fractures as detailed. 2. Incidental paranasal sinus disease. Comment: Preliminary interpretation was made by [facility]. No critical discrepancy.
== END 2020-11-08 04:38 | disposition home or self-care (01) ==
LOC: ED 01:42
DX: S01.21XA Laceration without foreign body of nose, initial encounter (principal); W01.0XXA Fall on same level from slipping, tripping and stumbling without subsequent striking against object, initial encounter; Y93.01 Activity, walking, marching and hiking; Y92.008 Other place in unspecified non-institutional (private) residence as the place of occurrence of the external cause; S02.2XXA Fracture of nasal bones, initial encounter for closed fracture
CPT/HCPCS: 12013; 70486; 96372; 99284; Q0162; A9270-GY

== ENCOUNTER 2021-10-23 10:49 | Emergency (ER) | payer BC, OTHER ==
[2021-10-23 11:18] VITALS: O2SAT 99
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
[2021-10-23 11:58] LABS: ALBUMIN 4.1 g/dL (3.5-5.0); ALKALINE PHOSPHATASE 66 U/L (38-126); ANION GAP 12.7 MEQ/L (5-15); BLOOD UREA NITROGEN 18 mg/dL (7-17); CHLORIDE 103 mmol/L (98-107); Calcium 8.6 mg/dL (8.4-10.2); Carbon Dioxide 24 mmol/L (22-30); Creatinine 1 0.69 mg/dL (0.52-1.04); EST GLOMERULAR FILTRATION RATE > 60.0 ML/MIN; Glucose 116 mg/dL (74-106); Potassium 3.8 mmol/L (3.5-5.1); SGOT/AST 18 U/L (14-36); SGPT/ALT 18 U/L (0-35); SODIUM 136 mmol/L (137-145); Total Protein 7.4 g/dL (6.3-8.2)
[2021-10-23 12:00] LABS: Absolute Neutrophil Ct (ANC) 9.14 (1.4-6.9); Basophil (Absolute #) 0.02 (0-0.4); Eosinophil (Absolute #) 0.12 (0-0.5); Hematocrit 42.1 % (35-47); Hemoglobin 14.3 gm/dl (12.0-16.0); Lymphocyte (Absolute #) 2.27 (1.0-4.6); Lymphocytes % 18.7 % (24.0-44.0); Mean Cell Volume 96.6 fl (78-100); Mean Corpuscular Hemoglobin 32.8 pg (26-32); Monocyte (Absolute #) 0.58 (0.0-1.3); Monocytes % 4.8 % (0.0-12.0); Neutrophil % 75.3 % (36.0-66.0); Platelet Count 337 K/mm3 (150-450); Red Blood Count 4.36 M/mm3 (4.1-5.4); Red Cell Distribution Width 13.3 % (11.5-14.0); White Blood Count 12.1 K/mm3 (4.0-10.5)
--- NOTE | 2021-10-23 12:18 | XRAY ---
Indication: Syncope. History seizure. Multiple contiguous axial images obtained through the head without contrast. Comparison: July 15, 2020. Normal appearing brain parenchyma, ventricles, and bony calvarium. Visualized paranasal sinuses and mastoid air cells are clear. Impression: Continued normal CT head without contrast exam.
[2021-10-23 12:30] LABS: Epithelial Cells RARE /HPF (FEW); WBC 0-2 /HPF (0-5)
[2021-10-23 12:33] LABS: Appearance CLEAR (CLEAR); Bilirubin NEGATIVE (NEGATIVE); Glucose NEGATIVE (NEGATIVE); Ketones NEGATIVE (NEGATIVE); Nitrite NEGATIVE (NEGATIVE); Ph 6.5 (5-6); Protein,Urine Dip NEGATIVE (Negative); RBC NEGATIVE Ery/ul (0-5); Specific Gravity 1.015 (1.005-1.025); Urine Cultured Indicated? NO; Urobilinogen 0.2 mg/dL (0-1)
[2021-10-23 12:34] LABS: Dipstick done @ ? MAIN LAB
[2021-10-23 12:43] LABS: Amphetamine,Urine NEGATIVE (NEGATIVE); Barbiturate,Urine NEGATIVE (NEGATIVE); Benzodiazepine,Urine NEGATIVE (NEGATIVE); Cocaine,Urine NEGATIVE (NEGATIVE); Methadone,Urine NEGATIVE (NEGATIVE); Opiate,Urine NEGATIVE (NEGATIVE); PCP,Urine NEGATIVE (NEGATIVE); THC,Urine NEGATIVE (NEGATIVE)
[2021-10-23 13:21] VITALS: BP 122/89; PULSE 113
== END 2021-10-23 13:21 | disposition home or self-care (01) ==
LOC: ED 10:49
DX: R55 Syncope and collapse (principal); G40.909 Epilepsy, unspecified, not intractable, without status epilepticus; Z72.0 Tobacco use; Z79.899 Other long term (current) drug therapy
CPT/HCPCS: 36000; 36415; 70450; 80053; 80307; 81015; 84484; 85025; 93005; 99284; G0480

== ENCOUNTER 2021-12-13 13:44 | Emergency (ER) | payer OTHER ==
[2021-12-13 14:13] VITALS: BP 123/79; PULSE 85; O2SAT 100
[2021-12-13] MEDS ORDERED: TORAdol 30 mg Injection IM ONE (14:14)
--- NOTE | 2021-12-13 14:18 | ERPHSYRPT ---
- History of Present Illness Time Seen by Provider: 12/13/21 13:45 Source: patient Exam Limitations: no limitations Patient Subjective Stated Complaint: PT HERE FOR PAIN TO RIGHT HAND AND WRIST AFTER MOVING. NO INJURY. Triage Nursing Assessment: PT ALERT, WALKED IN, RESP EASY, SKIN W/D/P, HAS SLIGHT SWELLING TO RIGHT HAND, UNABLE TO FULLY EXTEND FINGERS Physician History: 41 years old right-handed dominant female presented in the ER with chief complaint of right wrist/thumb base pain started yesterday after she was lifting heavy object as she is in the process of moving. Pain started after and gradually worsening moderate to severe sharp throbbing making difficulty movements at wrist, thumb and fingers. No direct trauma. Partial relief with being still. Occurred: yesterday Method of Injury: other Quality: sharpness Severity of Pain-Max: severe Severity of Pain-Current: severe Extremities Pain Location: wrist: right, thumb: right Modifying Factors: Improves With: immobilization. Worsens With: movement Associated Symptoms: none Allergies/Adverse Reactions: Penicillins Allergy (Verified 12/13/21 14:14) morphine Adverse Reaction (Severe, Verified 12/13/21 14:14) Vomiting naproxen Adverse Reaction (Verified 12/13/21 14:14) Hx Tetanus, Diphtheria Vaccination/Date Given: Yes Hx Influenza Vaccination/Date Given: No Hx Pneumococcal Vaccination/Date Given: No Immunizations Up to Date: Yes Travel Risk - International Travel Have you traveled outside of the country in past 3 weeks: No - Coronavirus Screening Are you exhibiting any of the following symptoms?: No Close contact with a COVID-19 positive Pt in past 14-21 Days: No - Vaccine Status Have you recieved a Covid-19 vaccination: No - Review of Systems Constitutional: No Symptoms Respiratory: No Symptoms Cardiac: No Symptoms Genitourinary Symptoms: No Symptoms Musculoskeletal: Joint Pain Skin: No Symptoms Neurological: No Symptoms Psychological: No Symptoms Endocrine: No Symptoms Hematologic/Lymphatic: No Symptoms Immunological/Allergic: No Symptoms - Past Medical History Pertinent Past Medical History: Yes Neurological History: Seizures ENT History: No Pertinent History Cardiac History: No Pertinent History Respiratory History: No Pertinent History Endocrine Medical History: Hypothyroidism, Other Musculoskeletal History: No Pertinent History GI Medical History: No Pertinent History History: No Pertinent History Psycho-Social History: Depression Female Reproductive Disorders: Cervical Cancer Other Medical History: HX Cervical Cancer (S/P Hysterectomy approx 2005), C- Section x2 (1999, 2001) - Past Surgical History Past Surgical History: Yes Neuro Surgical History: No Pertinent History Cardiac: No Pertinent History Respiratory: No Pertinent History Gastrointestinal: No Pertinent History Genitourinary: No Pertinent History Musculoskeletal: No Pertinent History Female Surgical History: Section, Hysterectomy - Social History Smoking Status: Current every day smoker How long have you smoked: 25 years Exposure to second hand smoke: Yes Drug Use: none Patient Lives Alone: No Significant Family History: no pertinent family hx - Female History Hx Last Menstrual Period: HYSTER Hx Now: No - Nursing Vital Signs Nursing Vital Signs: Initial Vital Signs Temperature 97.0 F 12/13/21 14:06 Pulse Rate 85 12/13/21 14:06 Respiratory Rate 18 12/13/21 14:06 Blood Pressure 123/79 12/13/21 14:06 O2 Sat by Pulse Oximetry 100 12/13/21 14:06 Pain Scale Pain Intensity 8 - Physical Exam General Appearance: no apparent distress, alert Eyes, Ears, Nose, Throat Exam: moist mucous membranes Neck Exam: normal inspection Cardiovascular/Respiratory Exam: normal breath sounds, regular rate/rhythm Wrist Exam: normal inspection, limited ROM (Right wrist with tenderness lateral side and on anatomical snuffbox.), pain, soft tissue tenderness Hand Exam: limited ROM (Right hand lateral side/anatomical snuffbox area/base of thumb, distal neurovascular well intact.) Neuro/Tendon Exam: normal sensation, normal motor functions, normal tendon functions Mental Status Exam: alert, oriented x 3, cooperative Skin Exam: normal color SpO2 Interpretation: normal SpO2: 100 O2 Delivery: Room Air Ordered Tests: Active Orders 24 hr Category Date Time Status HAND (MINIMUM 3 VIEWS) Stat Exams 12/13/21 14:30 Taken Medication Summary Discontinued Medications Generic Name Dose Route Start Last Admin Trade Name Freq PRN Reason Stop Dose Admin Hydrocodone Bitart/Acetaminophen 1 tablet 12/13/21 14:26 12/13/21 14:29 Hydrocodone/Acetamin 10-325 Mg Tablet PO 12/13/21 14:27 1 tablet ONCE STA Administration Ketorolac Tromethamine 30 mg 12/13/21 14:14 12/13/21 14:26 Ketorolac Tromethamine 30 Mg/Ml Inj IM 12/13/21 14:15 Not Given STAT ONE Ketorolac Tromethamine Confirm 12/13/21 14:23 Ketorolac Tromethamine 30 Mg/Ml Inj Administered 12/13/21 14:24 Dose 30 mg .ROUTE .STK-MED ONE - Progress Progress: improved, pain not gone completely, re-examined Progress Note: 12/13/21 14:48 No obvious fracture dislocation on x-rays reviewed by me, official report is pending. Placed in thumb spica and outpatient orthopedic surgery follow-up recommended. Counseled pt/family regarding: diagnosis, need for follow-up, rad results - Departure Departure Disposition: Home Clinical Impression: Hand sprain Qualifiers: Encounter type: initial encounter Laterality: right Qualified Code(s): S63.91XA - Sprain of unspecified part of right wrist and hand, initial encounter Condition: Stable Critical Care Time: No Referrals: DEMARIO HAND NP [Primary Care Provider] - Follow up/PCP as directed (1-2 days f or reevaluation) ORTHO - ALEX REINA NP [NON-STAFF PHY W/O PRIVILEGES] - Follow up/PCP as directed (Tomorrow morning for reevaluation ) Instructions: Hand Fracture (DC), Hand Pain (DC) Additional Instructions: Keep it elevated, intermittent ice application. Follow-up with orthopedic surgery for reevaluation tomorrow morning. Return to ER for worsening pain, swelling, difficulty movements of fingers, bluish discoloration of fingertips. Prescriptions: Ibuprofen 600 mg PO Q6HPRN PRN 10 Days #20 tablet PRN Reason: Pain
[2021-12-13] MEDS ORDERED: TORAdol 30 mg Injection ONE (14:23)
[2021-12-13] MEDS ORDERED: HYDROCODONE-ACETAMIN 10-325 MG PO STA (14:26)
--- NOTE | 2021-12-13 21:30 | XRAY ---
Indication: Pain. Comparison: None 3 view right hand demonstrates 3 mm well-circumscribed ossification base 3rd proximal phalanx radial aspect either degenerative versus old injury. No other bony, articular, or soft tissue abnormalities.
== END 2021-12-13 15:20 | disposition home or self-care (01) ==
LOC: ED 13:44
DX: S63.91XA Sprain of unspecified part of right wrist and hand, initial encounter (principal); X50.0XXA Overexertion from strenuous movement or load, initial encounter; Y93.E6 Activity, residential relocation; M25.531 Pain in right wrist; M79.641 Pain in right hand; Z72.0 Tobacco use; Z28.310 Unvaccinated for COVID-19
CPT/HCPCS: 73130; 99283; J1885; A9270-GY

== ENCOUNTER 2023-01-31 22:17 | Emergency (ER) | payer OTHER ==
--- NOTE | 2023-01-31 22:26 | ERPHSYRPT ---
- History of Present Illness Time Seen by Provider: 01/31/23 22:26 Source: patient Exam Limitations: no limitations Physician History: This is a 42-year-old white female patient of nurse practitioner Graham who complains of shortness of breath that began last evening. Primarily she has pain on inspiration. Her symptoms started last evening but they were worse today. Patient did see her nurse practitioner today but did not discuss her painful inspiration with her. She thought maybe she just slept wrong. However throughout the day she began coughing and slept most of the day. She was seen by her nurse practitioner today to receive a prescription to restart Adipex. Patient has no diagnosed cardiac history. Patient did take 800 mg ibuprofen at 8:30 PM prior to arrival. She has had no documented fever. Patient does not want any morphine intravenous injection. She does well with Vicodin/hydrocodone. Timing/Duration: today Activities at Onset: none Severity of Dyspnea-Max: mild Severity of Dyspnea-Current: mild Possible Cause: no prior episodes Modifying Factors: Improves With: coughing Associated Symptoms: anxiety, cough, chest pain/discomfort, painful breathing (Inspiration), No wheezing, No hemoptysis Allergies/Adverse Reactions: Penicillins Allergy (Verified 01/31/23 22:34) morphine Adverse Reaction (Severe, Verified 01/31/23 22:34) Vomiting naproxen Adverse Reaction (Verified 01/31/23 22:34) Home Medications: Albuterol Sulfate [Albuterol Sulfate Hfa] 2 inh IH Q4-6HPRN PRN 01/31/23 [History] Ibuprofen 800 mg PO Q8HPRN PRN 01/31/23 [History] Levothyroxine Sodium 75 Mcg [Synthroid 75 Mcg] 75 mcg PO DAILY 01/31/23 [History] Phentermine HCl [Adipex-P] 37.5 mg PO DAILY 01/31/23 [History] Topiramate 50 mg PO DAILY 01/31/23 [History] Hx Tetanus, Diphtheria Vaccination/Date Given: Yes Hx Influenza Vaccination/Date Given: No Hx Pneumococcal Vaccination/Date Given: No Travel Risk - International Travel Have you traveled outside of the country in past 3 weeks: No - Coronavirus Screening Are you exhibiting any of the following symptoms?: Yes Symptoms: Cough: New Onset, Shortness of Breath - Vaccine Status Have you recieved a Covid-19 vaccination: No - Review of Systems Constitutional: No Symptoms Eyes: No Symptoms Ears, Nose, & Throat: No Symptoms Respiratory: Cough, Dyspnea Cardiac: Chest Pain (On inspiration) Abdominal/Gastrointestinal: No Symptoms Genitourinary Symptoms: No Symptoms Musculoskeletal: No Symptoms Skin: No Symptoms Neurological: No Symptoms Psychological: No Symptoms Endocrine: No Symptoms Hematologic/Lymphatic: No Symptoms Immunological/Allergic: No Symptoms All Other Systems: Reviewed and Negative - Past Medical History Pertinent Past Medical History: Yes Neurological History: Seizures ENT History: No Pertinent History Cardiac History: No Pertinent History Respiratory History: No Pertinent History Endocrine Medical History: Hypothyroidism, Other Musculoskeletal History: No Pertinent History GI Medical History: No Pertinent History History: No Pertinent History Psycho-Social History: Depression Female Reproductive Disorders: Cervical Cancer Other Medical History: HX Cervical Cancer (S/P Hysterectomy approx 2005), C- Section x2 (1999, 2001) - Past Surgical History Past Surgical History: Yes Neuro Surgical History: No Pertinent History Cardiac: No Pertinent History Respiratory: No Pertinent History Gastrointestinal: No Pertinent History Genitourinary: No Pertinent History Musculoskeletal: No Pertinent History Female Surgical History: Section, Hysterectomy - Social History Smoking Status: Current every day smoker How long have you smoked: 25 years Exposure to second hand smoke: Yes Drug Use: none Patient Lives Alone: No Significant Family History: no pertinent family hx - Nursing Vital Signs Nursing Vital Signs: Initial Vital Signs Temperature 97.7 F 01/31/23 22:19 Pulse Rate 119 H 01/31/23 22:19 Respiratory Rate 16 01/31/23 22:19 Blood Pressure 119/87 01/31/23 22:19 O2 Sat by Pulse Oximetry 99 01/31/23 22:19 Pain Scale Pain Intensity 6 - Physical Exam General Appearance: no apparent distress, alert, anxiety Eye Exam: PERRL/EOMI, eyes nml inspection Ears, Nose, Throat Exam: hearing grossly normal, normal ENT inspection, normal pharynx Neck Exam: normal inspection, non-tender, supple, full range of motion Respiratory Exam: normal breath sounds, lungs clear, airway intact, No chest tenderness, No respiratory distress Cardiovascular/Chest Exam: normal heart sounds, tachycardia Abdominal/Gastrointestinal Exam: soft, normal bowel sounds, No tenderness Rectal Exam: not done Extremity Exam: non-tender, normal range of motion, normal inspection, normal capillary refill, no calf tenderness, no pedal edema, pelvis stable Neurologic Exam: alert, oriented x 3, cooperative, ice cutter II-XII nml as tested, normal mood/affect, nml cerebellar function, nml station & gait, sensation nml Skin Exam: normal color, warm, dry Lymphatic Exam: No adenopathy SpO2 Interpretation: normal O2 Delivery: Room Air - Course Nursing assessment & vital signs reviewed: Yes EKG Interpreted by Me: RATE (118), Sinus Tach, NORMAL AXIS, NORMAL INTERVALS, NORMAL QRS, NORMAL ST-T, Other (Acute ischemic changes on today's twelve-lead EKG.) Ordered Tests: Active Orders 24 hr Category Date Time Status Ship Manager STAT Care 01/31/23 22:37 Active EKG-ER Only STAT Care 01/31/23 22:36 Active IV Insertion STAT Care 01/31/23 22:36 Active Pulse Oximetry (ED) STAT Care 01/31/23 22:36 Active CHEST WITH CONTRAST [CT] Stat Exams 01/31/23 23:13 Completed CBC W DIFF Stat Lab 01/31/23 22:40 Completed CMP Stat Lab 01/31/23 22:40 Completed D-DIMER QUANTITATIVE Stat Lab 01/31/23 22:40 Completed TROPONIN Q4H Lab 01/31/23 22:40 Completed TROPONIN Q4H Lab 02/01/23 02:45 Ordered TROPONIN Q4H Lab 02/01/23 06:45 Ordered Lab/Rad Data: Laboratory Result Diagrams 01/31/23 22:40 01/31/23 22:40 Laboratory Results 01/31/23 01/31/23 01/31/23 Range/Units 23:18 22:40 22:40 WBC (4.0-10.5) x10^3/uL RBC (4.1-5.4) x10^6/uL Hgb (12.0-16.0) g/dL Hct (35-47) % MCV (78-100) fL MCH (26-32) pg MCHC (32-36) g/dL RDW (11.5-14.0) % Plt Count (150-450) x10^3/uL MPV (7.5-11.0) fL Gran % (36.0-66.0) % Immature Gran % (Auto) (0.00-0.4) % Nucleat RBC Rel Count (0.00-0.1) % Eos # (Auto) (0-0.5) x10^3/uL Immature Gran # (Auto) (0.00-0.03) x10^3u/L Absolute Lymphs (auto) (1.0-4.6) x10^3/uL Absolute Monos (auto) (0.0-1.3) x10^3/uL Absolute Nucleated RBC (0.00-0.01) x10^3u/L Lymphocytes % (24.0-44.0) % Monocytes % (0.0-12.0) % Eosinophils % (0.00-5.0) % Basophils % (0.0-0.4) % Absolute Granulocytes (1.4-6.9) x10^3/uL Basophils # (0-0.4) x10^3/uL D-Dimer 0.75 H* (0.0-0.50) mg/L Sodium (137-145) mmol/L Potassium (3.5-5.1) mmol/L Chloride (98-107) mmol/L Carbon Dioxide (22-30) mmol/L Anion Gap (5-15) MEQ/L BUN (7-17) mg/dL Creatinine (0.52-1.04) mg/dL Estimated GFR ML/MIN Glucose (74-106) mg/dL Calcium (8.4-10.2) mg/dL Total Bilirubin (0.2-1.3) mg/dL AST (14-36) U/L ALT (0-35) U/L Alkaline Phosphatase (38-126) U/L Troponin I < 0.012 (0.000-0.034) ng/mL Serum Total Protein (6.3-8.2) g/dL Albumin (3.5-5.0) g/dL Influenza Type A Ag NEGATIVE (NEGATIVE) Influenza Type B Ag NEGATIVE (NEGATIVE) RSV (PCR) NEGATIVE (NEGATIVE) SARS-CoV-2 (PCR) NEGATIVE (NEGATIVE) 01/31/23 01/31/23 Range/Units 22:40 22:40 WBC 14.0 H (4.0-10.5) x10^3/uL RBC 4.33 (4.1-5.4) x10^6/uL Hgb 13.8 (12.0-16.0) g/dL Hct 41.1 (35-47) % MCV 94.9 (78-100) fL MCH 31.9 (26-32) pg MCHC 33.6 (32-36) g/dL RDW 12.3 (11.5-14.0) % Plt Count 408 (150-450) x10^3/uL MPV 9.4 (7.5-11.0) fL Gran % 70.2 H (36.0-66.0) % Immature Gran % (Auto) 0.3 (0.00-0.4) % Nucleat RBC Rel Count 0.0 (0.00-0.1) % Eos # (Auto) 0.12 (0-0.5) x10^3/uL Immature Gran # (Auto) 0.04 H (0.00-0.03) x10^3u/L Absolute Lymphs (auto) 3.01 (1.0-4.6) x10^3/uL Absolute Monos (auto) 0.92 (0.0-1.3) x10^3/uL Absolute Nucleated RBC 0.00 (0.00-0.01) x10^3u/L Lymphocytes % 21.6 L (24.0-44.0) % Monocytes % 6.6 (0.0-12.0) % Eosinophils % 0.9 (0.00-5.0) % Basophils % 0.4 (0.0-0.4) % Absolute Granulocytes 9.82 H (1.4-6.9) x10^3/uL Basophils # 0.05 (0-0.4) x10^3/uL D-Dimer (0.0-0.50) mg/L Sodium 136 L (137-145) mmol/L Potassium 3.7 (3.5-5.1) mmol/L Chloride 102 (98-107) mmol/L Carbon Dioxide 24 (22-30) mmol/L Anion Gap 12.9 (5-15) MEQ/L BUN 12 (7-17) mg/dL Creatinine 0.81 (0.52-1.04) mg/dL Estimated GFR > 60.0 ML/MIN Glucose 117 H (74-106) mg/dL Calcium 8.3 L (8.4-10.2) mg/dL Total Bilirubin 0.50 (0.2-1.3) mg/dL AST 18 (14-36) U/L ALT 17 (0-35) U/L Alkaline Phosphatase 83 (38-126) U/L Troponin I (0.000-0.034) ng/mL Serum Total Protein 7.2 (6.3-8.2) g/dL Albumin 3.8 (3.5-5.0) g/dL Influenza Type A Ag (NEGATIVE) Influenza Type B Ag (NEGATIVE) RSV (PCR) (NEGATIVE) SARS-CoV-2 (PCR) (NEGATIVE) - Progress Progress: improved Air Movement: good Progress Note: 01/31/23 22:35 This patient's medical issue is at least moderate complexity. The level of complexity and the work-up performed is based on review of the patient's past medical history, review of the patient's medication list, review of the patient's drug allergy list, history of present illness and physical findings on examination. This patient is to have an intravenous line placed, we will check a troponin level, D-dimer level, CBC, CMP, twelve-lead EKG. We will hold on the chest x-ray until after the D-dimer level returns. If the D-dimer level is normal I will proceed with a portable chest x-ray. If the D-dimer level is high then we will forego the chest x-ray and perform a CT scan of the chest with contrast. We will hold off on providing the patient with baby aspirin. The reason for this is the patient took 800 mg of ibuprofen within the last 2 hours prior to arrival. 01/31/23 22:37 02/01/23 00:55 CT scan of the chest with contrast shows no acute pulmonary embolus. There is no acute cardiopulmonary process. This patient does have a leukocytosis. She does have pain on deep inspiration. She may have some pleurisy. We will go ahead and treat her for upper respiratory infection with Keflex, steroid as an outpatient. We will provide her with hydrocodone elixir here in the emergency department, prednisone 20 mg orally now and Keflex 500 mg orally now. Patient states that she has taken Kefl ex in the past without any adverse reaction. 02/01/23 00:58 Blood Culture(s) Obtained: Yes Counseled pt/family regarding: lab results, diagnosis, need for follow-up, rad results Medical Desision Making - Independent Historian Additional History obtained from: Spouse - Diagnostic Testing Diagnostic test were ordered, analyzed, and reviewed by me: Yes - Risk of complications The pt has a mod risk of morbidity or mortality based on: Need for prescription drug management - Departure Departure Disposition: Home Clinical Impression: Upper respiratory infection, Pleuritic pain, Leukocytosis Condition: Stable Critical Care Time: No Referrals: DEMARIO HAND NP [Primary Care Provider] - Follow up/PCP as directed Additional Instructions: Drink plenty of fluids. Avoid any kind exposure to smoke. Take your antibiotics and steroids as prescribed. Follow-up with your primary care provider today, to make arranges for further evaluation management. Prescriptions: Prednisone 10 mg [Deltasone 10 mg] 10 mg PO TID #12 tablet Cephalexin Mh 500 mg [Keflex 500 mg] 500 mg PO TID #21 cap
[2023-01-31 22:35] VITALS: TEMP 97.7
[2023-01-31 22:49] LABS: Absolute Neutrophil Ct (ANC) 9.82 x10^3/uL (1.4-6.9); BASOPHIL % 0.4 % (0.0-0.4); Basophil (Absolute #) 0.05 x10^3/uL (0-0.4); Eosinophil % 0.9 % (0.00-5.0); Eosinophil (Absolute #) 0.12 x10^3/uL (0-0.5); Hematocrit 41.1 % (35-47); Hemoglobin 13.8 g/dL (12.0-16.0); IMMATURE GRAN # 0.04 x10^3u/L (0.00-0.03); IMMATURE GRAN % 0.3 % (0.00-0.4); Lymphocyte (Absolute #) 3.01 x10^3/uL (1.0-4.6); Lymphocytes % 21.6 % (24.0-44.0); Mean Cell Volume 94.9 fL (78-100); Mean Corpuscular Hemoglobin 31.9 pg (26-32); Mean Corpuscular Hgb Concent. 33.6 g/dL (32-36); Mean Platelet Volume 9.4 fL (7.5-11.0); Monocyte (Absolute #) 0.92 x10^3/uL (0.0-1.3); Monocytes % 6.6 % (0.0-12.0); Neutrophil % 70.2 % (36.0-66.0); Platelet Count 408 x10^3/uL (150-450); Red Blood Count 4.33 x10^6/uL (4.1-5.4); Red Cell Distribution Width 12.3 % (11.5-14.0)
[2023-01-31 23:05] LABS: ALBUMIN 3.8 g/dL (3.5-5.0); ALKALINE PHOSPHATASE 83 U/L (38-126); ANION GAP 12.9 MEQ/L (5-15); BLOOD UREA NITROGEN 12 mg/dL (7-17); CHLORIDE 102 mmol/L (98-107); Calcium 8.3 mg/dL (8.4-10.2); Carbon Dioxide 24 mmol/L (22-30); Creatinine 1 0.81 mg/dL (0.52-1.04); EST GLOMERULAR FILTRATION RATE > 60.0 ML/MIN; Glucose 117 mg/dL (74-106); Potassium 3.7 mmol/L (3.5-5.1); SGOT/AST 18 U/L (14-36); SGPT/ALT 17 U/L (0-35); SODIUM 136 mmol/L (137-145); Total Protein 7.2 g/dL (6.3-8.2)
[2023-01-31 23:58] LABS: INFLUENZA A NEGATIVE (NEGATIVE); INFLUENZA B NEGATIVE (NEGATIVE); RESPIRATORY SYNCTIAL VIRUS NEGATIVE (NEGATIVE); SARS-CoV-2 Xpert Express NEGATIVE (NEGATIVE)
--- NOTE | 2023-02-01 00:40 | XRAY ---
CLINICAL HISTORY:ELEVATED D-DIMER COMPARISON:None TECHNIQUE:Contiguous 3.[address] anigographic images of the chest were acquired with the administration of intravenous contrast with PE protocol. Coronal and sagittal reconstructions were obtained. DLP; 626mGy*cm. CTDIvol:41mGy FINDINGS: No evidence of any filling defect in the main pulmonary trunk, bilateral main pulmonary arteries, segmental arteries, and subsegmental arteries. There are multiple enlarged calcified lymph nodes seen at the right paratracheal and bilateral more marked on the right hilar space. There are a few well-defined rounded nodules seen on a lateral segment of the right middle lobe, the superior lingular segment of the left upper lobe, the anterior segment of the right lower lobe, and the superior segment of the left lower lobe measuring 4 x 4 mm each. few subcentimeter peripheral-based nodules are also visualized bilaterally. Emphysematous changes in both lungs are noted, especially prominent in the upper lobes. Also, multiple bullae are noted in the upper lobes. No acute pathology with lung parenchyma. No Bony pathology soft tissue abnormality was noted. IMPRESSION: No evidence of any filling defect in the main pulmonary trunk, bilateral main pulmonary arteries, segmental arteries, and subsegmental arteries to suggest pulmonary embolism. Calcified mediastinal lymphadenopathy. Bilateral small nodules need clinical correlation. No acute pathology with lung parenchyma except a tiny air entrapment area at the periphery. Electronically Signed by: Justus Grubbs MD. (01/31/2023 23:39:58 TRIPE FINISHER)
[2023-02-01] MEDS ORDERED: HYDROCODONE-ACETAMIN 2.5-108/5 ML SOLUTION PO STA (00:59)
[2023-02-01] MEDS ORDERED: KEFLEX 500 MG PO ONE (00:59)
[2023-02-01] MEDS ORDERED: DELTASONE 20 MG PO ONE (01:00)
[2023-02-01 01:02] VITALS: RESP 16
[2023-02-01] MEDS ORDERED: HYDROCODONE-ACETAMIN 2.5-108/5 ML SOLUTION ONE (01:02)
[2023-02-01] MEDS ORDERED: KEFLEX 500 MG ONE (01:02)
[2023-02-01] MEDS ORDERED: DELTASONE 20 MG ONE (01:02)
[2023-02-01 01:05] VITALS: BP 109/78; PULSE 106; O2SAT 97
== END 2023-02-01 01:17 | disposition home or self-care (01) ==
LOC: ED 22:17
DX: J06.9 Acute upper respiratory infection, unspecified (principal); R07.81 Pleurodynia; D72.829 Elevated white blood cell count, unspecified; R06.02 Shortness of breath; R05.1 Acute cough; Z79.52 Long term (current) use of systemic steroids; Z79.899 Other long term (current) drug therapy; Z28.310 Unvaccinated for COVID-19; Z72.0 Tobacco use
CPT/HCPCS: 0241U; 36000; 36415; 71260; 80053; 84484; 85025; 85379; 93005; 93041; 94760; 99284; A9270-GY

== ENCOUNTER 2023-04-29 20:24 | Emergency (ER) | payer OTHER ==
--- NOTE | 2023-04-29 20:29 | ERPHSYRPT ---
- History of Present Illness Time Seen by Provider: 04/29/23 20:29 Source: patient Exam Limitations: no limitations Physician History: This is a right-handed 42-year-old white female patient of nurse practitioner Graham who presents with 3-day history of initial intermittent pain in her distal forearm and wrist on the right side but now its more constant. Patient denies any fall or injury to this area. Patient took 800 mg of ibuprofen at 1830 today. It hurts to open and close her hand. It hurts to move her wrist. Patient broke the same wrist 5 years ago and is concerned that there is a break present. Occurred: days ago (3) Method of Injury: other (No injury) Quality: constant Severity of Pain-Max: moderate Severity of Pain-Current: mild (To moderate) Extremities Pain Location: forearm: right, wrist: right Modifying Factors: Improves With: movement Associated Symptoms: none Allergies/Adverse Reactions: Penicillins Allergy (Verified 04/29/23 20:36) morphine Adverse Reaction (Severe, Verified 04/29/23 20:36) Vomiting naproxen Adverse Reaction (Verified 04/29/23 20:36) Home Medications: Albuterol Sulfate [Albuterol Sulfate Hfa] 2 inh IH Q4-6HPRN PRN 01/31/23 [History] Ibuprofen 800 mg PO Q8HPRN PRN 01/31/23 [History] Phentermine HCl [Adipex-P] 37.5 mg PO DAILY 01/31/23 [History] Topiramate 50 mg PO DAILY 01/31/23 [History] Levofloxacin [Levofloxacin 500 MG Tablet] 500 mg PO DAILY 04/29/23 [History] Hx Tetanus, Diphtheria Vaccination/Date Given: Yes Hx Influenza Vaccination/Date Given: No Hx Pneumococcal Vaccination/Date Given: No Travel Risk - International Travel Have you traveled outside of the country in past 3 weeks: No - Coronavirus Screening Are you exhibiting any of the following symptoms?: No Close contact with a COVID-19 positive Pt in past 14-21 Days: No - Vaccine Status Have you recieved a Covid-19 vaccination: No - Review of Systems Constitutional: No Symptoms Eyes: No Symptoms Ears, Nose, & Throat: No Symptoms Respiratory: No Symptoms Cardiac: No Symptoms Abdominal/Gastrointestinal: No Symptoms Genitourinary Symptoms: No Symptoms Musculoskeletal: Joint Pain (Right wrist and distal forearm pain with movement) Skin: No Symptoms Neurological: No Symptoms Psychological: No Symptoms Endocrine: No Symptoms Hematologic/Lymphatic: No Symptoms Immunological/Allergic: No Symptoms All Other Systems: Reviewed and Negative - Past Medical History Pertinent Past Medical History: Yes Neurological History: Seizures ENT History: No Pertinent History Cardiac History: No Pertinent History Respiratory History: No Pertinent History Endocrine Medical History: Hypothyroidism, Other Musculoskeletal History: No Pertinent History GI Medical History: No Pertinent History History: No Pertinent History Psycho-Social History: Depression Female Reproductive Disorders: Cervical Cancer Other Medical History: HX Cervical Cancer (S/P Hysterectomy approx 2005), C- Section x2 (1999, 2001) - Past Surgical History Past Surgical History: Yes Neuro Surgical History: No Pertinent History Cardiac: No Pertinent History Respiratory: No Pertinent History Gastrointestinal: No Pertinent History Genitourinary: No Pertinent History Musculoskeletal: No Pertinent History Female Surgical History: Section, Hysterectomy - Social History Smoking Status: Current every day smoker How long have you smoked: 25 years Exposure to second hand smoke: Yes Drug Use: none Patient Lives Alone: No Significant Family History: no pertinent family hx - Nursing Vital Signs Nursing Vital Signs: Initial Vital Signs Temperature 96.6 F 04/29/23 20:41 Pulse Rate 97 H 04/29/23 20:41 Respiratory Rate 16 04/29/23 20:41 Blood Pressure 140/103 04/29/23 20:41 O2 Sat by Pulse Oximetry 100 04/29/23 20:41 Pain Scale Pain Intensity 7 - Physical Exam General Appearance: no apparent distress, alert, anxiety Eyes, Ears, Nose, Throat Exam: normal ENT inspection, moist mucous membranes Neck Exam: normal inspection, non-tender, supple, full range of motion Cardiovascular/Respiratory Exam: chest non-tender, no respiratory distress Abdominal Exam: non-tender Back Exam: normal inspection, normal range of motion, No CVA tenderness, No vertebral tenderness Shoulder Exam: normal inspection, non-tender, no evidence of injury, normal ROM Elbow/Forearm Exam: normal inspection, no evidence of injury, normal ROM, limited ROM, soft tissue tenderness (Distal right forearm) Wrist Exam: normal inspection, no evidence of injury, normal ROM, soft tissue tenderness (Right) Hand Exam: normal inspection, non-tender, no evidence of injury, normal ROM Neuro/Tendon Exam: normal sensation, normal motor functions, normal tendon functions, responds to pain, no evidence tendon injury Mental Status Exam: alert, oriented x 3, cooperative Skin Exam: normal color, warm, dry SpO2 Interpretation: normal - Course Nursing assessment & vital signs reviewed: Yes Ordered Tests: Active Orders 24 hr Category Date Time Status WRIST (MIN 3 VIEWS) Stat Exams 04/29/23 20:54 Taken - Progress Progress: improved, pain not gone completely, re-examined Progress Note: 04/29/23 21:20 This patient's medical issue is 1 of low complexity. The level of complexity in the work-up performed is based on review of the patient's past medical history reviewed the patient's medication list, review of the patient's allergy list, history of present illness and physical findings on examination. The work-up in this patient includes x-ray of the right wrist. 04/29/23 21:59 The x-ray of the right wrist was interpreted by me. I do not appreciate an acute fracture or dislocation. Counseled pt/family regarding: diagnosis, need for follow-up, rad results Medical Desision Making - Independent Historian Additional History obtained from: Spouse - Diagnostic Testing Diagnostic test were ordered, analyzed, and reviewed by me: Yes Radiological Interpretation: Interpreted by me - Risk of complications The pt has a mod risk of morbidity or mortality based on: Need for prescription drug management - Departure Departure Disposition: Home Clinical Impression: Right wrist pain Condition: Stable Critical Care Time: No Referrals: DEMARIO HAND NP [Primary Care Provider] - Follow up/PCP as directed Additional Instructions: Ice pack to area 3 times a day for the next 48 hours. Take the prescriptions as prescribed. Follow-up with your primary care provider for further evaluation and management. Radiology will review the x-rays that were read tonight and if there are any different findings she will be notified tomorrow, 04/30/2023. Wear the wrist splint for comfort. Hold the ibuprofen while taking the steroid. Prescriptions: Prednisone 10 mg [Deltasone 10 mg] 10 mg PO TID #12 tablet Orphenadrine Citrate 100 mg [Norflex 100 MG Tablet] 100 mg PO BID #10 tab
[2023-04-29 20:51] VITALS: TEMP 96.6
[2023-04-29] MEDS ORDERED: NORCO 5/325 MG PO ONE ×2 (22:22)
[2023-04-29] MEDS ORDERED: NORCO 5/325 MG ONE (22:25)
[2023-04-29 22:41] VITALS: BP 114/84
[2023-04-29 22:42] VITALS: PULSE 84; RESP 16; O2SAT 98
--- NOTE | 2023-04-30 08:17 | XRAY ---
Indication: Pain. No known injury. Comparison: January 05, 2022 3 view right wrist obtained. No bony, articular, or soft tissue abnormalities.
== END 2023-04-29 22:44 | disposition home or self-care (01) ==
LOC: ED 20:24
DX: M25.531 Pain in right wrist (principal); M79.631 Pain in right forearm; Z79.899 Other long term (current) drug therapy; Z79.52 Long term (current) use of systemic steroids; Z28.310 Unvaccinated for COVID-19; Z72.0 Tobacco use
CPT/HCPCS: 73110; 99283; L3908; A9270-GY

== ENCOUNTER 2023-08-18 06:04 | Day surgery (SDC) | payer BC, OTHER ==
[2023-08-18] MEDS: Lactated Ringers 1,000 ML IV SCH (06:27)
[2023-08-18 06:28] VITALS: RESP 18
[2023-08-18 06:29] LABS: BASOPHIL % 0.4 % (0.0-0.4); Basophil (Absolute #) 0.05 x10^3/uL (0-0.4); Eosinophil % 1.5 % (0.00-5.0); Eosinophil (Absolute #) 0.19 x10^3/uL (0-0.5); Hematocrit 45.2 % (35-47); Hemoglobin 14.8 g/dL (12.0-16.0); IMMATURE GRAN # 0.05 x10^3u/L (0.00-0.03); IMMATURE GRAN % 0.4 % (0.00-0.4); Lymphocyte (Absolute #) 3.02 x10^3/uL (1.0-4.6); Lymphocytes % 23.1 % (24.0-44.0); Mean Cell Volume 96.2 fL (78-100); Mean Corpuscular Hemoglobin 31.5 pg (26-32); Mean Corpuscular Hgb Concent. 32.7 g/dL (32-36); Mean Platelet Volume 9.3 fL (7.5-11.0); Monocyte (Absolute #) 0.57 x10^3/uL (0.0-1.3); Monocytes % 4.4 % (0.0-12.0); Neutrophil % 70.2 % (36.0-66.0); Platelet Count 374 x10^3/uL (150-450); Red Cell Distribution Width 13.3 % (11.5-14.0); White Blood Count 13.1 x10^3/uL (4.0-10.5)
[2023-08-18] MEDS ORDERED: Sensorcaine 0.25% 10 ML ONE (06:40)
[2023-08-18 06:42] LABS: ALBUMIN 4.4 g/dL (3.5-5.0); ANION GAP 14.3 MEQ/L (5-15); BILIRUBIN,TOTAL 0.5 mg/dL (0.2-1.3); Calcium 8.7 mg/dL (8.4-10.2); Creatinine 1 0.66 mg/dL (0.52-1.04); EST GLOMERULAR FILTRATION RATE 111.6 ML/MIN; Potassium 4.4 mmol/L (3.5-5.1); Total Protein 7.9 g/dL (6.3-8.2)
[2023-08-18] MEDS ORDERED: SUBLIMAZE 100 MCG/2 ML ONE (06:45)
[2023-08-18] MEDS ORDERED: DIPRIVAN 200 MG/20 ML IV ONE ×2 (06:45→07:22)
[2023-08-18] MEDS ORDERED: Versed 2 MG/2 ML Injection ONE ×2 (06:46→07:02)
[2023-08-18] MEDS ORDERED: Decadron 4 MG INJ ONE (06:47)
[2023-08-18] MEDS ORDERED: Zofran 4 MG/2 ML VIAL ONE (06:47)
[2023-08-18] MEDS ORDERED: TORAdol 30 mg Injection ONE (06:47)
[2023-08-18] MEDS ORDERED: Xylocaine-Mpf 2% 5 Ml Vial ONE (07:02)
[2023-08-18] MEDS ORDERED: Compazine 10 MG/2 ML ONE (07:52)
[2023-08-18] MEDS ORDERED: Hydromorphone 1 mg/ml Injection ONE (07:57)
[2023-08-18 08:24] VITALS: TEMP 97.4; O2SAT 96
[2023-08-18 08:37] VITALS: BP 106/71; PULSE 97
--- NOTE | 2023-08-18 10:44 | OP ---
SURGERY DATE/TIME: 08/18/2023 0702 PREOPERATIVE DIAGNOSIS: De Quervain tendonitis right wrist. POSTOPERATIVE DIAGNOSIS: De Quervain tendonitis right wrist. PROCEDURE: Revision of first dorsal compartment right wrist. SURGEON: Rj Hurst II, D.O. ANESTHESIA: MAC with local utilizing 1% Xylocaine plain. DESCRIPTION OF PROCEDURE: The patient is identified and informed consent was obtained. The patient was taken to the operative suite where she was placed in the supine position on the operative room table. The right upper extremity was prepped and draped in the usual sterile fashion. Sedation was given by anesthesia. At this point the area over the A1 rosa was infiltrated with 1% Xylocaine plain. Once an appropriate level of anesthesia had been obtained, an incision was carried out over the first dorsal compartment longitudinally. The skin was incised and dissection carried out through subcutaneous tissue. Bleeders were cauterized with electrocautery unit. ICE retractor was placed as well as Ragnell retractors. The first dorsal compartment was easily identified and released with Antoine's tenotomy scissors. There was a septum noted in the first dorsal compartment. The wound was then irrigated and closed with interrupted 5-0 Nylon suture. Adaptic, 4x4 and a sterile dressing applied. The patient was transferred to the cart and taken to day surgery in satisfactory condition and she tolerated the procedure well.
== END 2023-08-18 08:44 | disposition home or self-care (01) ==
LOC: SDC 06:04
PROVIDERS: ATTEND Orthopaedic Surgery
DX: M65.4 Radial styloid tenosynovitis [de Quervain] (principal)
CPT/HCPCS: 36415; 80053; 85025; J1100; J1170; J1885; J2250; J2405; J2704; J3010